=== PATIENT | female | born 1995 | race Caucasian/White ===

== ENCOUNTER 2019-01-16 01:44 | Emergency (ER) | payer OTHER, MEDICAID ==
[~2019-01-16] VITALS: Ht 165.1 cm; Wt 96.2 kg
[2019-01-16 02:13] LABS: URINE BILIRUBIN NEGATIVE (Negative); URINE BLOOD NEGATIVE (Negative); URINE CLARITY CLEAR; URINE COLOR YELLOW; URINE GLUCOSE-RANDOM NEGATIVE (Negative); URINE KETONES NEGATIVE (Negative); URINE LEUKOCYTES-REFLEX 1+ (Negative); URINE NITRITE-REFLEX NEGATIVE (Negative); URINE PROTEIN NEGATIVE (Negative); URINE SPECIFIC GRAVITY <= 1.005 (1.005-1.030); URINE UROBILINOGEN 0.2 E.U./dl (0.2-1.0)
[2019-01-16 02:26] LABS: SQUAMOUS 0-3 Few /LPF (0-3); TRANSITIONAL EPITHEL CELL 0-3 Few /LPF (None Seen)
[2019-01-16 02:27] LABS: BACTERIA-REFLEX >30 Many /HPF (None Seen); CASTS None Seen /LPF (None Seen); CRYSTALS None Seen /LPF (None Seen); MUCUS 0-3 Light strn/LPF (None Seen); URINE RBC 0-2 Rare /HPF (0-2); WBC CLUMPS Few (None Seen)
[2019-01-16 02:32] LABS: ABSOLUTE BASOPHILS 0.1 thou/uL (0.0-0.2); ABSOLUTE EOSINOPHILS 0.1 thou/uL (0.0-0.7); ABSOLUTE LYMPHOCYTES 3.1 thou/uL (0.8-5.3); ABSOLUTE MONOCYTES 0.7 thou/uL (0.0-1.2); ABSOLUTE NEUTROPHILS 4.8 thou/uL (1.6-8.1); BASOPHILS 0.8 %; EOSINOPHILS 1.1 %; HEMATOCRIT 39.4 % (37.0-47.0); HEMOGLOBIN 13.5 gm/dL (12.0-15.0); LYMPHOCYTES 35.2 %; MCH 28.6 pg (26.0-34.0); MCHC 34.2 g/dL (28.0-37.0); MCV 83.7 fL (80.0-100.0); MONOCYTES 7.7 %; MPV 9.3 fl. (7.2-11.1); NUCLEATED RBCS 0 /100WBC; PLATELET COUNT* 282 thou/uL (150-400); POLYS 55.2 %; RBC 4.71 mil/uL (4.20-5.00); RDW-CV 12.8 % (10.5-14.5); WBC 8.8 thou/uL (4.0-11.0)
[2019-01-16 02:41] LABS: ALBUMIN 3.6 g/dL (3.4-5.0); CALCIUM 9.2 mg/dL (8.5-10.1); CREATININE 0.8 mg/dL (0.6-1.3); POTASSIUM 3.7 mmol/L (3.5-5.1); TOTAL BILIRUBIN 0.3 mg/dL (<0.1-1.0); TOTAL PROTEIN 7.2 g/dL (6.4-8.2)
[2019-01-16] MEDS ORDERED: KEFLEX500 M1 PO (05:17)
[2019-01-16] MEDS ORDERED: HYDROCODONE-AP1 EAC6 PO (05:17)
[2019-01-16 05:38] VITALS: BP 102/62
== END 2019-01-16 05:40 | disposition home or self-care (01) ==
LOC: M.ERS 01:44
PROVIDERS: Emergency Medicine Emergency Medical Services
DX: N12 Tubulo-interstitial nephritis, not specified as acute or chronic (principal); N15.9 Renal tubulo-interstitial disease, unspecified; J45.909 Unspecified asthma, uncomplicated; F17.210 Nicotine dependence, cigarettes, uncomplicated

== ENCOUNTER 2019-08-15 15:57 | Emergency (ER) | payer OTHER, MEDICAID ==
[~2019-08-15] VITALS: Ht 165.1 cm; Wt 89.8 kg
[~2019-08-15 15:57] MED LIST: HYDROCODONE-AP1 EAC6 PO; KEFLEX500 M1 PO
[2019-08-15] MEDS ORDERED: MEDROLDOSEPACK PO (16:57)
[2019-08-15] MEDS ORDERED: TYLENOL WITH CO1 TA1 PO (16:57)
[2019-08-15 18:00] VITALS: BP 126/75
== END 2019-08-15 18:00 | disposition home or self-care (01) ==
LOC: M.ERS 15:57
DX: M54.42 Lumbago with sciatica, left side (principal); M25.552 Pain in left hip; J45.909 Unspecified asthma, uncomplicated; M19.90 Unspecified osteoarthritis, unspecified site; F31.9 Bipolar disorder, unspecified; F17.210 Nicotine dependence, cigarettes, uncomplicated; Z88.8 Allergy status to other drugs, medicaments and biological substances